=== PATIENT | female | born 2000 | race Caucasian/White ===

== ENCOUNTER 2020-06-13 19:59 | Observation (INO) ==
[2020-06-13] MEDS ORDERED: FLU Vac QV 20-21 (6Month+)/PF 0.5 ML SYRINGE IM ONE (20:36)
[2020-06-13 21:00] LABS: Amorphous Sediment,Urine Few per hpf (None-Few); Bacteria,Urine Few per hpf (None-Few); Bilirubin,Urine Negative (Negative); Blood,Urine Trace (Negative); Clarity,Urine Ex.Turbid (Clear); Color,Urine Yellow (Yellow); Glucose,Urine (UA) Normal (Normal); Ketones,Urine Negative (Negative); Leukocyte Esterase,Urine Small (Negative); Mucus,Urine Many per lpf (None-Few); Nitrite,Urine Negative (Negative); Protein,Urine 70 mg/dL (Neg-Trace); Specific Gravity,Urine > 1.030 (1.010-1.025); Squamous Epithelial Cell,Urine Many per hpf (None-Few); WBC,Urine 15-30 per hpf (0-3)
== END 2020-06-13 22:01 | disposition home or self-care (01) ==
LOC: 1NENULAB
PROVIDERS: ADMIT Obstetrics & Gynecology; ATTEND Obstetrics & Gynecology

== ENCOUNTER 2020-10-22 03:49 | Inpatient (IN) ==
[2020-10-22] MEDS ORDERED: miSOPROStoL 25 MCG TABLET PO PRN (04:11)
[2020-10-22] MEDS ORDERED: *HR* Nalbuphine 10 MG/ML AMPUL IV PRN (04:11)
[2020-10-22] MEDS ORDERED: Lidocaine 1% 20 ML MDV INFILT PRN (04:11)
[2020-10-22] MEDS ORDERED: Naloxone 0.4 MG/ML INJ IVP PRN (04:11)
[2020-10-22] MEDS ORDERED: Metoclopramide 10 MG/2 ML VIAL IVP PRN (04:11)
[2020-10-22] MEDS ORDERED: Famotidine 20 MG/2 ML VIAL IVP PRN (04:11)
[2020-10-22] MEDS ORDERED: Ringers Solution, Lactated 1,000 ML IVC SCH (04:15)
[2020-10-22 05:01] LABS: Basophils % 0.3 %; Eosinophils # 0.1 K/mcL (0.0-0.6); Hematocrit 36.7 % (35.3-44.9); Hemoglobin 12.6 g/dL (11.5-15.4); Immature Granulocytes % 0.4 % (0-4); Lymphocytes % 17.7 %; Mean Corpuscular HGB Conc 34.3 g/dL (31.6-35.5); Mean Corpuscular Hemoglobin 31.7 pg (28.0-33.3); Mean Corpuscular Volume 92.2 fL (83.0-100.0); Monocytes # 1.1 K/mcL (0.0-1.3); Monocytes % 9.4 %; Platelet Count 237 K/mcL (140-400); Red Blood Count 3.98 M/mcL (3.82-4.97); Red Cell Distribution Width 12.5 % (11.5-14.5); Segmented Neutrophils % 71.2 %; White Blood Count 11.2 K/mcL (4.3-11.1)
[2020-10-22 05:21] LABS: Amphetamine Screen,Urine Negative ng/mL (Cutoff=1000); Barbiturate Screen,Urine Negative ng/mL (Cutoff=200); Benzodiazepines Screen,Urine Negative ng/mL (Cutoff=200); Cannabinoid Screen,Urine Positive ng/mL (Cutoff = 50); Cocaine Screen,Urine Negative ng/mL (Cutoff= 300); Opiate Screen,Urine Negative ng/mL (Cutoff=300); Phencyclidine Screen,Urine Negative ng/mL (Cutoff=25)
[2020-10-22] MEDS ORDERED: EPHEDrine 50 MG/ML VIAL IVP PRN (09:43)
[2020-10-22] MEDS ORDERED: Epidural Premix (fent/bupiv) 110 ML EP SCH (09:45)
[2020-10-22] MEDS ORDERED: Oxytocin 20 units/ LR 1000 mL 20 UNIT/1,000 ML BAG IVC ONE (13:12)
[2020-10-22] MEDS ORDERED: Ondansetron 4 MG/2 ML VIAL IVP PRN (14:55)
[2020-10-22] MEDS ORDERED: *HR* FentaNYL (PF) 100 MCG/2 ML VIAL ONE (15:12)
[2020-10-22] MEDS ORDERED: Oxytocin 20 units/ LR 1000 mL 20 UNIT/1,000 ML BAG IVC SCH (20:53)
[2020-10-22] MEDS ORDERED: Acetaminophen 325 MG TABLET PO PRN (20:53)
[2020-10-22] MEDS ORDERED: Measles/Mumps/Rubella Vacc 0.5 ML VIAL SQ PRN (20:53)
[2020-10-22] MEDS ORDERED: Rho Immune Globulin 1,500 UNIT SYRINGE IM PRN (20:53)
[2020-10-22] MEDS: Ibuprofen 600 MG TABLET PO PRN (22:34)
[2020-10-23 05:56] LABS: Basophils # 0.1 K/mcL (0.0-0.2); Basophils % 0.3 %; Eosinophils # 0.1 K/mcL (0.0-0.6); Eosinophils % 0.7 %; Hemoglobin 11.9 g/dL (11.5-15.4); Immature Granulocytes % 0.5 % (0-4); Lymphocytes # 2.5 K/mcL (0.6-4.6); Mean Corpuscular Hemoglobin 31.8 pg (28.0-33.3); Mean Corpuscular Volume 93.6 fL (83.0-100.0); Mean Platelet Volume 12.1 fL (9.4-12.4); Monocytes # 1.5 K/mcL (0.0-1.3); Monocytes % 9.9 %; Neutrophils # 10.7 K/mcL (1.6-8.9); Platelet Count 215 K/mcL (140-400); Red Blood Count 3.74 M/mcL (3.82-4.97); Red Cell Distribution Width 12.6 % (11.5-14.5); Segmented Neutrophils % 71.6 %; White Blood Count 14.9 K/mcL (4.3-11.1)
[2020-10-23 07:45] VITALS: BP 129/88
[2020-10-23] MEDS: Ibuprofen 600 MG TABLET PO PRN (07:52)
[2020-10-23] MEDS ORDERED: Prenatal Vit/FA 1 EACH TABLET PO SCH (09:00)
[2020-10-23] MEDS ORDERED: NON-FORMULARY MEDICATION 1 EACH EACH (Prenatal Vits96/Iron Fum/Folic [Prenatal Tablet] 1 E PO SCH (09:00)
== END 2020-10-23 20:09 | disposition home or self-care (01) | DRG 560 ==
LOC: 1NENULAB 03:49 → 1NENUOBS 21:16
PROVIDERS: ADMIT Student in an Organized Health Care Education/Training Program; ATTEND Student in an Organized Health Care Education/Training Program